=== PATIENT | female | born 1965 | race Hispanic/Latino ===

== ENCOUNTER 2021-02-24 06:42 | Emergency (ER) | payer OTHER ==
[2021-02-24 07:40] LABS: Urine Blood 3+ (Negative); Urine Glucose Negative (Negative); Urine Protein 3+ (Negative)
[2021-02-24 08:12] LABS: Urine RBC TNTC /HPF (NONE SEEN)
[2021-02-24 08:13] LABS: Urine Bacteria <20 /HPF (<20)
--- NOTE | 2021-02-24 08:17 | EDPHYS ---
Physician Documentation [facility] Name: Lurdes Gaona Age: 55 yrs Sex: Female : 1965 Arrival Date: 02/24/2021 Time: 06:47 Bed 10 Private MD: ED Physician Alan Lau HPI: 02/24 08:05 This 55 yrs old Female presents to ER via Ambulatory with complaints of Urinary pm1 Frequency, Blood in Urine. 08:05 The patient presents with urinary symptoms, dysuria, frequency, hematuria. pm1 08:05 Onset: The symptoms/episode began/occurred 2 day(s) ago. Modifying factors: The pm1 symptoms are alleviated by nothing, the symptoms are aggravated by urinating. Associated signs and symptoms: Pertinent negatives: diarrhea, fever, nausea, vomiting, Abdominal pain. Severity of symptoms: in the emergency department the symptoms are actually worse. 08:05 The patient has experienced a previous episode, approximately 2 years ago. The patient pm1 has not recently seen a physician, out of town. Historical: - Allergies: 07:15 No Known Allergies; aa5 - PMHx: 07:15 Diabetes mellitus; aa5 - PSHx: 07:15 None; aa5 - Immunization history:: Client reports receiving the 2nd dose of the Covid vaccine. - Social history:: Smoking status: Patient denies any tobacco usage or history of. ROS: 08:05 Positive for urinary frequency, hematuria, burning with urination, Negative for pm1 flank pain, vaginal discharge, vaginal itching. 08:05 Constitutional: Negative for fever, chills Cardiovascular: Negative for chest pain, palpitations, and edema, Respiratory: Negative for shortness of breath, cough, wheezing, and pleuritic chest pain. 08:05 Back: Negative for injury and pain, MS/Extremity: Negative for injury and deformity, Skin: Negative for injury, rash, and discoloration. 08:05 Abdomen/GI: Negative for abdominal pain, nausea and vomiting, diarrhea, constipation. 08:05 All other systems are negative. Exam: 08:05 Constitutional: This is a well developed, well nourished patient who is awake, alert, pm1 and in no acute distress. Head/Face: Normocephalic, atraumatic. 08:05 Skin: Warm, dry with normal turgor. Normal color with no rashes, no lesions, and no evidence of cellulitis. MS/ Extremity: Pulses equal, no cyanosis. Neurovascular intact. Full, normal range of motion. 08:05 Cardiovascular: Exam negative for acute changes, Rate: normal, Rhythm: regular, Pulses: no pulse deficits are appreciated. 08:05 Respiratory: Exam negative for acute changes, respiratory distress, shortness of breath, Breath sounds: are clear throughout. 08:05 Abdomen/GI: Inspection: obese Palpation: abdomen is soft and non-tender, in all quadrants. 08:05 Back: Exam negative for acute changes, pain, is absent, normal spinal alignment noted, CVA tenderness, is absent, vertebral tenderness, is not appreciated. 08:05 Neuro: Exam negative for acute changes, Orientation: is normal, Mentation: is normal, Motor: is normal, moves all fours. Vital Signs: 07:14 BP 127 / 75; Pulse 82; Resp 18 S; Temp 97.0(TE); Pulse Ox 100% on R/A; Weight 90.72 kg aa5 (R); Height 5 ft. 2 in. (157.48 cm) (R); 07:14 Body Mass Index 36.58 (90.72 kg, 157.48 cm) aa5 MDM: 07:54 Patient medically screened. pm1 08:15 Data reviewed: vital signs. Data interpreted: Pulse oximetry: on room air is 100 %. pm1 Interpretation: normal. 08:15 Counseling: I had a detailed discussion with the patient and/or guardian regarding: the pm1 historical points, exam findings, and any diagnostic results supporting the discharge/admit diagnosis, lab results, the need for outpatient follow up, PCP, to return to the emergency department if symptoms worsen or persist or if there are any questions or concerns that arise at home. 08:19 ED course: Patient currently from out of town and driving back on Thursday to [place]. pm1 Offered the patient IM antibiotics to shorten duration of illness for return trip home. 02/24 07:23 Order name: Urine Microscopic Only; Complete Time: 08:14 pm1 02/24 07:39 Order name: Urine Dipstick-Ancillary; Complete Time: 07:41 EDMS 02/24 07:23 Order name: Urine Dipstick-Ancillary (obtain specimen); Complete Time: 07:51 pm1 02/24 08:20 Order name: Urine Culture EDMS Administered Medications: 08:25 Drug: Rocephin (cefTRIAXone) 1 grams Route: IM; Site: right gluteus; aa5 Disposition Summary: 02/24/21 08:16 Discharge Ordered Location: Home pm1 Problem: new pm1 Symptoms: have improved pm1 Condition: Stable pm1 Diagnosis - UTI/ Urinary tract infection, site not specified pm1 Followup: pm1 - With: Emergency Department - When: As needed - Reason: Worsening of condition Followup: pm1 - With: Private Physician - When: 2 - 3 days - Reason: Recheck today's complaints, Continuance of care, Re-evaluation by your physician Discharge Instructions: - Discharge Summary Sheet pm1 - Urinary Tract Infection, Adult pm1 Forms: - Medication Reconciliation Form pm1 - Thank You Letter pm1 - Antibiotic Education pm1 - Prescription Opioid Use pm1 Prescriptions: - Pyridium 200 mg Oral Tablet - take 1 tablet by ORAL route every 8 hours for 3 days; 9 tablet; Refills: 0, pm1 Product Selection Permitted - Bactrim DS 800-160 mg Oral Tablet - take 1 tablet by ORAL route every 12 hours for 10 days; 20 tablet; Refills: 0, pm1 Product Selection Permitted Addendum: 02/26/2021 08:51 Co-signature as Attending Physician, Alan Lau MD I agree with the assessment and s p3 plan of care. PA/DIETITIAN TEACHER's history reviewed, patient interviewed, and examined. Signatures: Dispatcher [employer] EDMS Irasema Mejia RN RN aa5 Jay Del Real NP DIETITIAN TEACHER pm1 Alan Lau MD MD sp3 Corrections: (The following items were deleted from the chart) 02/24 07:16 07:15 PMHx: None; hilario rich
--- NOTE | 2021-02-24 08:17 | ER ---
Nurse's Notes [facility] Name: Lurdes Gaona Age: 55 yrs Sex: Female : 1965 Arrival Date: 02/24/2021 Time: 06:47 Bed 10 Private MD: Diagnosis: UTI/ Urinary tract infection, site not specified Presentation: 02/24 07:14 Chief complaint: Patient states: urinary frequency, dysuria, urgency, and blood in aa5 urine that began 2 days ago. Coronavirus screen: At this time, the client does not indicate any symptoms associated with coronavirus-19. Ebola Screen: Patient negative for fever greater than or equal to 101.5 degrees Fahrenheit, and additional compatible Ebola Virus Disease symptoms. Initial Sepsis Screen: Does the patient meet any 2 criteria? No. Patient's initial sepsis screen is negative. Does the patient have a suspected source of infection? No. Patient's initial sepsis screen is negative. Risk Assessment: Do you want to hurt yourself or someone else? Patient reports no desire to harm self or others. Onset of symptoms was February 2021. 07:14 Method Of Arrival: Ambulatory aa5 07:14 Acuity: EDUARDO 4 aa5 Historical: - Allergies: 07:15 No Known Allergies; aa5 - PMHx: 07:15 Diabetes mellitus; aa5 - PSHx: 07:15 None; aa5 - Immunization history:: Client reports receiving the 2nd dose of the Covid vaccine. - Social history:: Smoking status: Patient denies any tobacco usage or history of. Assessment: 07:46 General: Appears uncomfortable, Behavior is calm, cooperative. Pain: Complains of pain aa5 in groin Pain currently is 8 out of 10 on a pain scale. Quality of pain is described as burning, sharp, Is continuous. Neuro: Level of Consciousness is awake, alert, obeys commands, Oriented to person, place, time, situation. Cardiovascular: Patient's skin is warm and dry. Respiratory: Airway is patent Respiratory effort is even, unlabored, Respiratory pattern is regular, symmetrical. GI: No signs and/or symptoms were reported involving the gastrointestinal system. : Reports burning with urination, pain with urination, urgency, urinary frequency. EENT: No signs and/or symptoms were reported regarding the EENT system. Derm: Skin is pink, warm \T\ dry. Musculoskeletal: Range of motion: intact in all extremities. 08:25 Reassessment: Patient is alert, oriented x 3, equal unlabored respirations, skin aa5 warm/dry/pink. Vital Signs: 07:14 BP 127 / 75; Pulse 82; Resp 18 S; Temp 97.0(TE); Pulse Ox 100% on R/A; Weight 90.72 kg aa5 (R); Height 5 ft. 2 in. (157.48 cm) (R); 07:14 Body Mass Index 36.58 (90.72 kg, 157.48 cm) aa5 ED Course: 06:47 Patient arrived in ED. bp1 07:12 Arm band placed on. aa5 07:15 Triage completed. aa5 07:22 Jay Del Real NP is PHCP. pm1 07:22 Alan Lau MD is Attending Physician. pm1 08:27 Irasema Mejia RN is Primary Nurse. aa5 Administered Medications: 08:25 Drug: Rocephin (cefTRIAXone) 1 grams Route: IM; Site: right gluteus; aa5 Outcome: 08:16 Discharge ordered by MD. pm1 12:36 Discharged to previously during downtime (see pt's chart) aa5 12:37 Patient left the ED. aa5 Signatures: Irasema Mejia RN RN aa5 Jay Del Real NP [employer] pm1 Brittni Dumont bp1 Corrections: (The following items were deleted from the chart) 07:16 07:15 PMHx: None; aa5 aa5
[2021-02-24] MEDS ORDERED: CEFTRIAXONE 1000 MG/VIAL ONE (08:40)
[2021-02-24] MEDS ORDERED: LIDOCAINE 1% MPF 5 ML VIAL ONE (08:40)
[2021-02-24 16:53] VITALS: BP 127/75; TEMP 97; O2SAT 100
== END 2021-02-24 12:37 | disposition home or self-care (01) ==
LOC: ER 06:42
DX: N39.0 Urinary tract infection, site not specified (principal); E11.9 Type 2 diabetes mellitus without complications
CPT/HCPCS: 81003; 81015; 87086; 87088; 96372; 99282